=== PATIENT | female | born 1970 | race Two or more races ===

== ENCOUNTER 2017-09-20 16:02 | Emergency (ER) | payer MEDICAID ==
[~2017-09-20] VITALS: Ht 172.7 cm; Wt 64.0 kg
[2017-09-20 16:24] VITALS: BP 105/73
== END 2017-09-20 17:16 | disposition left against medical advice (07) ==
LOC: ER 16:02
DX: J02.9 Acute pharyngitis, unspecified (principal); H92.03 Otalgia, bilateral
CPT/HCPCS: 87070; 87430; 99284

== ENCOUNTER 2018-08-23 10:26 | Emergency (ER) | payer MEDICAID ==
[~2018-08-23] VITALS: Ht 172.7 cm; Wt 59.0 kg
[2018-08-23] MEDS ORDERED: KETOROLAC 30MG/ML VIAL IV ONE (11:15)
[2018-08-23] MEDS ORDERED: DEXAMETHASONE 10 MG/ML VIAL PO ONE (11:15)
[2018-08-23 12:20] VITALS: BP 124/76
== END 2018-08-23 12:24 | disposition home or self-care (01) ==
LOC: ER 10:26
DX: J02.9 Acute pharyngitis, unspecified (principal)
CPT/HCPCS: 87070; 87430; 96374; 99283; J1100; J1885

== ENCOUNTER 2021-06-09 08:21 | Emergency (ER) | payer MEDICAID ==
[~2021-06-09] VITALS: Ht 175.3 cm; Wt 77.0 kg
[2021-06-09 08:37] VITALS: BP 127/75
== END 2021-06-09 10:27 | disposition left against medical advice (07) ==
LOC: ER 08:21
DX: Z53.21 Procedure and treatment not carried out due to patient leaving prior to being seen by health care provider (principal)